=== PATIENT | male | born 1980 | race Caucasian/White ===

== ENCOUNTER 2018-12-25 22:58 | Emergency (ER) | payer MEDICAID ==
[~2018-12-25] VITALS: Ht 172.7 cm; Wt 136.1 kg
[2018-12-25 23:12] VITALS: BP_SYST 120
== END 2018-12-26 02:50 | disposition left against medical advice (07) ==
LOC: SED 22:58
DX: M79.671 Pain in right foot (principal); Z53.21 Procedure and treatment not carried out due to patient leaving prior to being seen by health care provider